=== PATIENT | female | born 1955 | race Caucasian/White ===

== ENCOUNTER 2018-11-11 05:29 | Inpatient (IN) | payer OTHER ==
[2018-11-11] MEDS: GABAPENTIN 300 MG CAP PO ×2 (06:03→21:03)
[2018-11-11] MEDS: DEXAMETHASONE 1 MG TAB PO (06:03)
[2018-11-11] MEDS: LACTATED RINGER'S 1,000 ML IV ×3 (06:03→16:13)
[2018-11-11] MEDS ORDERED: SOD CHLORIDE 0.9% 100 ML, TRANEXAMIC ACID 3,000 MG IRR (06:30)
[2018-11-11] MEDS ORDERED: CEFAZOLIN 2 GM/50 ML (PMX) 50 ML IVPB (06:30)
[2018-11-11] MEDS: TRANEXAMIC ACID 1GM/100ML(PMX) 100 ML (06:58)
[2018-11-11] MEDS ORDERED: MIDAZOLAM 1 MG/ML 2 ML INJ (07:00)
[2018-11-11] MEDS ORDERED: PROPOFOL 20 ML (07:02)
[2018-11-11] MEDS ORDERED: LIDOCAINE 2% (SDV) 5 ML INJ (07:02)
[2018-11-11] MEDS ORDERED: FENTAnyl 50 MCG/ML VIAL (07:02)
[2018-11-11] MEDS ORDERED: CEFAZOLIN 1 GM INJ (07:32)
[2018-11-11] MEDS ORDERED: CA CHLORIDE 10% 10 ML SYRINGE (07:48)
[2018-11-11] MEDS ORDERED: THROMBIN 5000 UNIT VIAL (07:48)
[2018-11-11] MEDS ORDERED: ONDANSETRON 4 MG INJ (07:50)
[2018-11-11] MEDS ORDERED: FAMOTIDINE 20 MG INJ (07:50)
[2018-11-11] MEDS ORDERED: EPHEDrine 25 MG/5 ML SYG (07:50)
[2018-11-11] MEDS ORDERED: DEXAMETHASONE 4 MG/ML 5 ML INJ (07:50)
[2018-11-11] MEDS: POLYMYXIN/BACITRACIN 1L IRRIG (07:53)
[2018-11-11] MEDS ORDERED: HYDROmorphONE 1 MG/5 ML IV SYRINGE IV ×2 (08:30)
[2018-11-11] MEDS ORDERED: OXYCODONE/ACETAMINOPHEN (5/325) TAB PO (08:30)
[2018-11-11] MEDS ORDERED: DIPHENHYDRAMINE 50 MG INJ IV ×2 (08:30→09:00)
[2018-11-11] MEDS ORDERED: hydrALAzine 20 MG INJ IV (08:30)
[2018-11-11] MEDS ORDERED: PROCHLORPERAZINE 10 MG INJ IV (08:30)
[2018-11-11] MEDS ORDERED: EPHEDrine 25 MG/5 ML SYG IV (08:30)
[2018-11-11] MEDS ORDERED: MEPERIDINE 25 MG INJ IV (08:30)
[2018-11-11] MEDS ORDERED: ROPIVACAINE 0.5 % 30 ML VIAL (08:54)
[2018-11-11] MEDS ORDERED: TRANEXAMIC ACID 1GM/100ML(PMX) 100 ML (08:57)
[2018-11-11] MEDS: BUPIVACAINE 0.5% (SDV) 30 ML, morphine SULFATE (PF) 8 MG, EPINEPHrine 0.3 MG, KETOROLAC... IRR (09:00)
[2018-11-11] MEDS ORDERED: HYDROmorphONE 1 MG/ML SYG IV (09:00)
[2018-11-11] MEDS ORDERED: ZOLPIDEM 5 MG TAB PO (09:00)
[2018-11-11] MEDS ORDERED: NACL 0.9% 3 ML SYG IV (09:00)
[2018-11-11] MEDS ORDERED: ONDANSETRON 4 MG INJ IV (09:00)
[2018-11-11] MEDS: TRANEXAMIC ACID 1GM/100ML(PMX) 100 ML IVPB (09:00)
[2018-11-11] MEDS: ACETAMINOPHEN 1000MG/100ML IV 100 ML IVPB ×2 (09:36→17:22)
[2018-11-11] MEDS: CEFAZOLIN 1 GM/50 ML (PMX) 50 ML IVPB ×2 (09:36→17:22)
[2018-11-11 09:48] LABS: ADD MAN DIFF? NO
[2018-11-11 09:52] LABS: WHITE BLOOD COUNT 8.4 10^3/ul (4.8-10.8)
[2018-11-11 09:52] LABS: BASOPHILS % 0.5 % (0.0-2.0); EOSINOPHILS # 0.1 10^3/ul (0.0-0.5); EOSINOPHILS % 0.6 % (0.0-7.0); HEMATOCRIT 33.9 % (37.0-47.0); HEMOGLOBIN 11.4 g/dl (12.0-16.0); LYMPHOCYTES # 1.4 10^3/ul (0.8-2.9); LYMPHOCYTES % 16.2 % (15.0-51.0); MEAN CORPUSCULAR HEMOGLOBIN 30.1 pg (29.0-33.0); MEAN CORPUSCULAR HGB CONC 33.6 g/dl (32.0-37.0); MEAN CORPUSCULAR VOLUME 89.4 fl (82.0-101.0); MONOCYTE # 0.3 10^3/ul (0.3-0.9); NEUTROPHIL # 6.6 10^3/ul (1.6-7.5); NEUTROPHILS % 79.3 % (39.0-77.0); PLATELET COUNT 220 10^3/UL (140-415); RED BLOOD COUNT 3.79 10^6/ul (4.20-5.40); RED CELL DISTRIBUTION WIDTH 12.3 % (11.5-14.5)
[2018-11-11] MEDS: FENTAnyl 50 MCG/ML VIAL IV (11:01)
[2018-11-11] MEDS: HYDROmorphONE 1 MG/5 ML IV SYRINGE IV (11:02)
[2018-11-11] MEDS: ONDANSETRON 4 MG INJ IV (11:03)
[2018-11-11] MEDS: SENNA/DOCUSATE NA (8.6MG/50MG) TAB PO ×2 (11:05→21:04)
[2018-11-11] MEDS: DEXAMETHASONE 2 MG TAB PO ×2 (12:55→17:24)
[2018-11-11] MEDS: oxyCODONE 5 MG TAB PO ×2 (14:28→19:39)
[2018-11-11] MEDS: LOSARTAN 50 MG TAB PO (21:00)
[2018-11-11] MEDS: AMLODIPINE 5 MG TAB PO (21:00)
[2018-11-12] MEDS: DEXAMETHASONE 2 MG TAB PO ×2 (00:35→05:20)
[2018-11-12] MEDS: ACETAMINOPHEN 1000MG/100ML IV 100 ML IVPB (00:36)
[2018-11-12] MEDS: oxyCODONE 5 MG TAB PO ×7 (00:36→22:04)
[2018-11-12] MEDS: CEFAZOLIN 1 GM/50 ML (PMX) 50 ML IVPB (01:07)
[2018-11-12] MEDS: LACTATED RINGER'S 1,000 ML IV ×2 (03:54→14:40)
[2018-11-12] MEDS: MAGNESIUM HYDROXIDE 30ML CUP PO (04:10)
[2018-11-12 05:09] LABS: ADD MAN DIFF? NO
[2018-11-12 05:13] LABS: ABNORMAL IP MESSAGE 1; BASOPHILS % 0.1 % (0.0-2.0); HEMATOCRIT 32.9 % (37.0-47.0); HEMOGLOBIN 10.9 g/dl (12.0-16.0); LYMPHOCYTES % 4.6 % (15.0-51.0); MEAN CORPUSCULAR HEMOGLOBIN 30.1 pg (29.0-33.0); MEAN CORPUSCULAR HGB CONC 33.1 g/dl (32.0-37.0); MEAN CORPUSCULAR VOLUME 90.9 fl (82.0-101.0); MEAN PLATELET VOLUME 10.6 fl (7.4-10.4); MONOCYTE # 0.9 10^3/ul (0.3-0.9); NEUTROPHIL # 20.4 10^3/ul (1.6-7.5); NEUTROPHILS % 90.8 % (39.0-77.0); PLATELET COUNT 234 10^3/UL (140-415); RED BLOOD COUNT 3.62 10^6/ul (4.20-5.40); RED CELL DISTRIBUTION WIDTH 12.3 % (11.5-14.5)
[2018-11-12 05:13] LABS: WHITE BLOOD COUNT 22.5 10^3/ul (4.8-10.8)
[2018-11-12 05:23] LABS: POSITIVE DIFF @See below
[2018-11-12] MEDS: SENNA/DOCUSATE NA (8.6MG/50MG) TAB PO ×2 (08:21→20:54)
[2018-11-12] MEDS: ASPIRIN (EC) 325 MG TAB PO (09:00)
[2018-11-12] MEDS: GABAPENTIN 300 MG CAP PO (20:54)
[2018-11-12] MEDS: AMLODIPINE 5 MG TAB PO (21:00)
[2018-11-12] MEDS: LOSARTAN 50 MG TAB PO (21:00)
[2018-11-13] MEDS: oxyCODONE 5 MG TAB PO ×3 (02:14→13:47)
[2018-11-13 05:08] LABS: ADD MAN DIFF? NO
[2018-11-13 05:25] LABS: WHITE BLOOD COUNT 16.2 10^3/ul (4.8-10.8)
[2018-11-13 05:25] LABS: BASOPHILS % 0.2 % (0.0-2.0); EOSINOPHILS % 0.1 % (0.0-7.0); HEMATOCRIT 26.5 % (37.0-47.0); HEMOGLOBIN 8.9 g/dl (12.0-16.0); LYMPHOCYTES # 2.2 10^3/ul (0.8-2.9); LYMPHOCYTES % 13.3 % (15.0-51.0); MEAN CORPUSCULAR HEMOGLOBIN 30.6 pg (29.0-33.0); MEAN CORPUSCULAR HGB CONC 33.6 g/dl (32.0-37.0); MEAN CORPUSCULAR VOLUME 91.1 fl (82.0-101.0); MEAN PLATELET VOLUME 10.9 fl (7.4-10.4); MONOCYTE # 1.1 10^3/ul (0.3-0.9); NEUTROPHIL # 12.8 10^3/ul (1.6-7.5); NEUTROPHILS % 78.9 % (39.0-77.0); PLATELET COUNT 191 10^3/UL (140-415); RED BLOOD COUNT 2.91 10^6/ul (4.20-5.40)
[2018-11-13] MEDS: NA PHOSPHATE/BIPHOS 133 ML ENEMA PR (06:34)
[2018-11-13] MEDS: ASPIRIN (EC) 325 MG TAB PO (08:55)
[2018-11-13] MEDS: SENNA/DOCUSATE NA (8.6MG/50MG) TAB PO (08:55)
[2018-11-13] MEDS ORDERED: MAGNESIUM HYDROXIDE 30ML CUP PO (21:00)
== END 2018-11-13 15:35 | disposition home or self-care (01) | DRG 470 ==
LOC: REC 05:29 → MS1 11:12
PROVIDERS: Orthopaedic Surgery
PROC: 0SR904A Replacement of Right Hip Joint with Ceramic on Polyethylene Synthetic Substitute, Uncemented, Open Approach (ICD-10-PCS; principal; 2018-11-11 06:58)
DX: M16.11 Unilateral primary osteoarthritis, right hip (principal); I10 Essential (primary) hypertension
CPT/HCPCS: 72170; 73530; 85025; 86999; 87086; 88304; 88311; 97110; 97116; 97162; 97530